=== PATIENT | female | born 1985 | race Caucasian/White ===

== ENCOUNTER 2017-04-16 01:06 | Emergency (ER) | payer SELFPAY ==
[2017-04-16 01:25] VITALS: BMI 19.7
--- NOTE | 2017-04-16 01:45 | PDOC ---
History of Present Illness <Bridger Edmond - Last Filed: 04/16/17 01:35> <MoniqueMaya - Last Filed: 04/17/17 05:14> - General Chief Complaint: Overdose Stated Complaint: OVERDOSE Time Seen by Provider: 04/16/17 01:18 Past History - Psycho/Social/Smoking Cessation Hx Suicidal Ideation: No Smoking History: Smoker current status UNK Information on smoking cessation initiated: No Hx Alcohol Use: No Drug/Substance Use Hx: No <Bridger Edmond - Last Filed: 04/16/17 01:35> <Maya Monique - Last Filed: 04/17/17 05:14> - Past Medical History Allergies/Adverse Reactions: Allergies Allergy/AdvReac Type Severity Reaction Status Date / Time No Known Allergies Allergy Verified 04/16/17 03:37 Home Medications: Ambulatory Orders NK [No Known Home Medication] 04/16/17 *Physical Exam - Vital Signs Last Vital Signs Temp Pulse Resp BP Pulse Ox 55 L 18 98/69 96 04/16/17 01:22 04/16/17 01:22 04/16/17 01:22 04/16/17 01:22 <Bridger Edmond - Last Filed: 04/16/17 01:35> - Vital Signs Last Vital Signs Temp Pulse Resp BP Pulse Ox 58 L 15 109/79 100 04/16/17 02:39 04/16/17 02:39 04/16/17 02:39 04/16/17 02:39 <Maya Monique - Last Filed: 04/17/17 05:14> ED Treatment Course - LABORATORY CBC & Chemistry Diagram: 04/16/17 01:47 04/16/17 01:47 - ADDITIONAL ORDERS Additional order review: Laboratory Results 04/16/17 04/16/17 04/16/17 01:49 01:47 01:47 VBG pH 7.37 POC VBG pCO2 39.8 POC VBG pO2 59.7 H Mixed VBG HCO3 22.3 Sodium Potassium Chloride Carbon Dioxide Anion Gap BUN Creatinine Creat Clearance w eGFR Random Glucose Lactic Acid Calcium Total Bilirubin AST ALT Alkaline Phosphatase Total Protein Albumin Serum , Qual Salicylates Acetaminophen 6.854 L Alcohol, Quantitative < 5.0 04/16/17 04/16/17 04/16/17 01:47 01:45 01:25 VBG pH POC VBG pCO2 POC VBG pO2 Mixed VBG HCO3 Sodium 142 Potassium 3.5 Chloride 107 Carbon Dioxide 24 Anion Gap 11 BUN 12 Creatinine 0.6 Creat Clearance w eGFR > 60 Random Glucose 83 Lactic Acid 0.9 Calcium 7.5 L Total Bilirubin 0.3 AST 25 ALT 20 Alkaline Phosphatase 32 L Total Protein 5.4 L Albumin 3.0 L Serum , Qual Negative Salicylates Acetaminophen Alcohol, Quantitative 04/16/17 01:25 VBG pH POC VBG pCO2 POC VBG pO2 Mixed VBG HCO3 Sodium Potassium Chloride Carbon Dioxide Anion Gap BUN Creatinine Creat Clearance w eGFR Random Glucose Lactic Acid Calcium Total Bilirubin AST ALT Alkaline Phosphatase Total Protein Albumin Serum , Qual Salicylates < 4.0 Acetaminophen Alcohol, Quantitative 04/16/17 01:47 RBC 3.39 L MCV 92.4 MCHC 33.0 RDW 13.4 MPV 8.4 Neutrophils % 57.6 Lymphocytes % 27.8 Monocytes % 8.7 Eosinophils % 4.5 Basophils % 1.4 <Maya Monique - Last Filed: 04/17/17 05:14> Medical Decision Making - Medical Decision Making 04/17/17 05:13 Pt was seen and examined and teated by the previous attending, Jerman. Friends came to get her in the ER now so she was sent home, as labs are stable. Pt's condition improved <Maya Monique - Last Filed: 04/17/17 05:14> *DC/Admit/Observation/Transfer <Bridger Edmond - Last Filed: 04/16/17 01:35> - Discharge Dispostion Admit: No <Maya Monique - Last Filed: 04/17/17 05:14> Diagnosis at time of Disposition: Drug overdose - Discharge Dispostion Disposition: HOME Condition at time of disposition: Stable - Patient Instructions Printed Discharge Instructions: DI for Drug Overdose in Adults
[2017-04-16 01:56] LABS: VENOUS BLOOD GAS HCO3 22.3 meq/L (19-25); VENOUS PH 7.37 (7.32-7.42)
[2017-04-16 02:07] LABS: BASOPHIL 1.4 % (0-2.0); EOSINOPHIL 4.5 % (0-4.5); MCH 30.5 pg (25.7-33.7); MEAN CELL VOLUME 92.4 fl (80-96); MEAN PLT VOLUME 8.4 fl (7.5-11.1); NEUTROPHILS 57.6 % (42.8-82.8); PLATELET COUNT 227 K/MM3 (134-434); RDW 13.4 % (11.6-15.6); WHITE BLOOD COUNT 8.1 K/mm3 (4.0-10.0)
[2017-04-16 02:30] LABS: ALK PHOS 32 U/L (45-117); ANION GAP 11 (8-16); BILIRUBIN,TOTAL 0.3 mg/dL (0.2-1.0); CALCIUM 7.5 mg/dL (8.5-10.1); CO2 24 mmol/L (21-32); CREATININE 0.6 mg/dL (0.55-1.02); GLUCOSE,RANDOM 83 mg/dL (74-106); SGOT/AST 25 U/L (15-37); SGPT/ALT 20 U/L (12-78); TOT PROT 5.4 g/dl (6.4-8.2)
--- NOTE | 2017-04-16 02:42 | PDOC ---
Attending Attestation - Resident Resident Name: Bridger Edmond - ED Attending Attestation I have performed the following: I have examined & evaluated the patient, The case was reviewed & discussed with the resident, I agree w/resident's findings & plan, Exceptions are as noted - HPI HPI: 04/16/17 02:40 32-year-old female brought in by EMS for altered mental status after consuming several for tablets of GHB - Physicial Exam PE: 04/16/17 02:41 On initial evaluation, patient is stuporous, moans to sternal rub, without evidence of head injury, round and reactive pupils (2 mm bilaterally), with clear lungs, soft nondistended abdomen and no evidence of petechial rash. Initial evaluation, patient's oxygen saturation was noted to be 96% on room air and end-tidal CO2 was noted to be 17. - Medical Decision Making 04/16/17 02:42 Patient's a 32-year-old female who consumed GHB and presented to the ER with altered mental status. After period of observation, patient regained normal mental status and displayed no focal neurological deficits. Will observe. Likely discharge.
[2017-04-16 03:57] VITALS: BP 99/76; PULSE 77
--- NOTE | 2017-04-17 10:38 | EKG ---
Test Reason : Blood Pressure : / mmHG Vent. Rate : 050 BPM Atrial Rate : 050 BPM P-R Int : 174 ms QRS Dur : 090 ms QT Int : 520 ms P-R-T Axes : 066 083 053 degrees QTc Int : 474 ms SINUS BRADYCARDIA WITH SINUS ARRHYTHMIA OTHERWISE NORMAL ECG NO PREVIOUS ECGS AVAILABLE Confirmed by SHELLIE NAYAK MD ([id number]) on 04/17/2017 10:37:45 AM Referred By: Confirmed By:SHELLIE NAYAK MD
== END 2017-04-16 03:59 | disposition home or self-care (01) ==
LOC: JER 01:06
DX: T41.29 Poisoning by, adverse effect of and underdosing of other general anesthetics (principal); R41.82 Altered mental status, unspecified; Y92.89 Other specified places as the place of occurrence of the external cause
CPT/HCPCS: 36415; 80053; 80307; 82803; 83605; 84703; 85025; 93005; 93010; 99285-25